=== PATIENT | female | born 1935 | race Caucasian/White ===

== ENCOUNTER 2019-03-31 | Emergency (ER) | payer MEDICARE ==
[2019-03-31] MEDS ORDERED: AMOXICILLIN500 M2 (21:17)
[2019-03-31] MEDS ORDERED: PROBIOTI2 (21:18)
[2019-03-31] MEDS ORDERED: MUCINEX600 MG PO (21:18)
[2019-03-31] MEDS ORDERED: LOSARTAN POTASS25 MG PO (21:19)
[2019-03-31] MEDS ORDERED: TYLENOL 8 HOUR650 MG (21:20)
[2019-03-31 21:50] LABS: HEMOGLOBIN 14.2 g/dl (12.0-16.0); IMMATURE GRANULOCYTES 0.7 % (0.0-5.0); MEAN CELL VOLUME 90.9 fL CALC (80.0-100.0); MEAN CORPUSCULAR HGB 30.7 pG CALC (26.0-32.0); MEAN CORPUSCULAR HGB CONC 33.8 g/L CALC (32.0-36.0); NEUT# 8.46 thou/uL (2.00-7.15); RED BLOOD COUNT 4.62 mill/uL (4.20-5.60); RED CELL DISTRI WIDTH 11.9 % (11.5-15.5)
[2019-03-31 21:54] LABS: PROTHROMBIN TIME 10.7 SECONDS (9.0-12.5)
[2019-03-31 21:55] LABS: ALBUMIN 4.4 g/dL (3.2-5.0); ALKALINE PHOSPHATASE 98 u/l (38-126); BUN 17 mg/dL (8-23); BUN/CREATININE RATIO 22 (12-20 (CALC)); CARBON DIOXIDE 24 mmol/l (22-30); CHLORIDE 97 mmol/l (95-108); CREATININE 0.8 mg/dL (0.5-1.0); GFR > 60 ML/MIN (>=60 (CALC)); GFR FOR AFR.AMER. > 60 ML/MIN (>=60 (CALC))
[2019-03-31 22:05] LABS: ANION GAP 15 (6-22 (CALC)); BILIRUBIN, TOTAL 0.9 mg/dL (0.0-1.4); SGOT/AST 41 u/l (9-36); SODIUM 132 mmol/l (137-146)
[2019-03-31 22:09] LABS: URINE BLOOD DIPSTICK SMALL (NEGATIVE); URINE COLOR YELLOW; URINE GLUCOSE - DIPSTICK NEGATIVE (NEGATIVE); URINE KETONE NEGATIVE (NEGATIVE); URINE LEUK ESTERASE NEGATIVE (NEGATIVE); URINE NITRITE - DIPSTICK NEGATIVE (Negative); URINE PROTEIN - DIPSTICK 100 mg/dL (NEG-TRACE); URINE SPECIFIC GRAVITY >=1.030
[2019-03-31 22:10] LABS: URINE BILIRUBIN - DIPSTICK NEGATIVE (NEGATIVE)
[2019-03-31 22:11] LABS: URINE SQUAMOUS EPITHELIAL CELL FEW EPI/hpf (0-FEW); URINE WBC 0-2 WBC/hpf (0-5)
[2019-04-01] MEDS ORDERED: TESSALON PERLE100 MG PO (00:45)
== END 2019-04-01 01:25 | disposition home or self-care (01) ==
PROVIDERS: Emergency Medicine
DX: J02.0 Streptococcal pharyngitis (principal); R53.1 Weakness; I10 Essential (primary) hypertension; R94.31 Abnormal electrocardiogram [ECG] [EKG]

== ENCOUNTER 2020-04-12 11:52 | Emergency (ER) | payer MEDICARE ==
[~2020-04-12] VITALS: Ht 162.6 cm; Wt 97.0 kg
[~2020-04-12 11:52] MED LIST: AMOXICILLIN500 M2; LOSARTAN POTASS25 MG PO; MUCINEX600 MG PO; PROBIOTI2; TESSALON PERLE100 MG PO; TYLENOL 8 HOUR650 MG
[2020-04-12 13:14] LABS: HEMATOCRIT 42.7 % (37.0-47.0); HEMOGLOBIN 14.2 g/dl (12.0-16.0); IMMATURE GRANULOCYTES 0.2 % (0.0-5.0); MEAN CELL VOLUME 92.4 fL CALC (80.0-100.0); MEAN CORPUSCULAR HGB 30.7 pG CALC (26.0-32.0); MEAN CORPUSCULAR HGB CONC 33.3 g/dL CAL (32.0-36.0); NEUT# 8.79 thou/uL (2.00-7.15); RED BLOOD COUNT 4.62 mill/uL (4.20-5.60); RED CELL DISTRI WIDTH 12.2 % (11.5-15.5)
[2020-04-12 13:18] LABS: URINE BLOOD DIPSTICK NEGATIVE (NEGATIVE); URINE COLOR YELLOW; URINE GLUCOSE - DIPSTICK NEGATIVE (NEGATIVE); URINE KETONE TRACE mg/dL (NEGATIVE); URINE LEUK ESTERASE NEGATIVE (NEGATIVE); URINE NITRITE - DIPSTICK NEGATIVE (Negative); URINE PROTEIN - DIPSTICK 30 mg/dL (NEG-TRACE); URINE SPECIFIC GRAVITY >=1.030; URINE UROBILINOGEN - DIPSTICK 0.2 E.U./dL (0.2)
[2020-04-12 13:29] LABS: URINE BILIRUBIN - DIPSTICK SMALL (NEGATIVE)
[2020-04-12 13:33] LABS: URINE SQUAMOUS EPITHELIAL CELL MANY EPI/hpf (0-FEW)
[2020-04-12 13:43] LABS: ALBUMIN 4.6 g/dL (3.2-5.0); ALKALINE PHOSPHATASE 110 u/l (38-126); ANION GAP 15 (6-22 (CALC)); BUN 11 mg/dL (8-23); BUN/CREATININE RATIO 12 (12-20 (CALC)); CARBON DIOXIDE 23 mmol/l (22-30); CHLORIDE 102 mmol/l (95-108); CREATININE 0.8 mg/dL (0.5-1.0); GFR > 60 ML/MIN (>=60 (CALC)); GFR FOR AFR.AMER. > 60 ML/MIN (>=60 (CALC)); LIPASE 52 u/l (23-300); POTASSIUM 4.1 mmol/l (3.5-5.1); SGOT/AST 25 u/l (9-36); SODIUM 136 mmol/l (137-146)
[2020-04-12 15:35] VITALS: BP 144/84
[2020-04-14] MEDS ORDERED: LOMOTIL2.5 MG PO (00:21)
[2020-04-14] MEDS ORDERED: METRONIDAZOL500 MG PO (00:21)
[2020-04-14] MEDS ORDERED: NAPROXEN500 MG PO (00:21)
[2020-04-14] MEDS ORDERED: CIPROFLOXACN500 MG PO (00:21)
== END 2020-04-12 15:54 | disposition home or self-care (01) ==
LOC: ED 11:52
PROVIDERS: Family Medicine
DX: R19.7 Diarrhea, unspecified (principal); I10 Essential (primary) hypertension; Z20.822 Contact with and (suspected) exposure to COVID-19